=== PATIENT | male | born 1950 | race Caucasian/White ===

== ENCOUNTER 2018-01-10 13:44 | Outpatient (CLI) | payer MEDICARE ==
[2018-01-10 16:15] LABS: #Eosinphils 0.1 thou/uL (0.0-0.7); #Monocytes 0.7 thou/uL (0.11-0.59); %Basophils 0.6 % (0.0-1.0); %Eosinophils 2.1 % (0.0-10.0); %Lymphocytes 28.9 % (21.0-51.0); %Monocytes 10.3 % (0.0-10.0); %Neutrophils 58.2 % (42.0-75.0); Hemoglobin 17.8 g/dL (14.0-18.0); Mean Corpuscular Hemoglobin 34.1 pg (27.0-31.0); Mean Platelet Volume 7.5 fL (7.4-10.4); Platelet Count 158 thou/uL (130-400); RBC Distribution Width 11.8 % (11.5-14.5); Red Blood Cell (RBC) Count 5.22 mill/uL (4.70-6.10); White Blood Cell (WBC) Count 6.8 thou/uL (4.8-10.8)
[2018-01-10 16:48] LABS: Anion Gap 10 mmol/L (10-20); BUN (Urea Nitrogen) 16 mg/dL (8.4-25.7); Calc. Creatinine Clearance 0 mL/min (70-130); Calcium 9.7 mg/dL (7.8-10.44); Carbon Dioxide 30 mmol/L (23-31); Chloride 102 mmol/L (98-107); Estimated GFR-MDRD 70; Glucose 115 mg/dL (80-115); Potassium 4.3 mmol/L (3.5-5.1); Sodium 138 mmol/L (136-145)
== END 2018-01-10 13:45 | disposition home or self-care (01) ==
LOC: LABBT 13:44
PROVIDERS: ATTEND Surgery
DX: Z01.812 Encounter for preprocedural laboratory examination (principal); K40.90 Unilateral inguinal hernia, without obstruction or gangrene, not specified as recurrent
CPT/HCPCS: 80048; 85025

== ENCOUNTER 2018-01-12 09:54 | Day surgery (SDC) | payer MEDICARE ==
[2018-01-10 13:46] VITALS: BMI 29.2
[2018-01-12] MEDS ORDERED: Fentanyl 100 MCG/2 ML VIAL ONE ×3 (10:17→14:06)
[2018-01-12] MEDS ORDERED: Lidocaine 1% w/Epinephrine 1:200K 30 ML VIAL ONE (11:17)
[2018-01-12] MEDS ORDERED: Bupivacaine 0.25% HCL 30 ML VIAL ONE (11:17)
[2018-01-12] MEDS ORDERED: CEFAZOLIN/Water 2 GM/20 ML SYRINGE ONE ×2 (11:27→11:50)
[2018-01-12] MEDS ORDERED: Midazolam HCl 2 mg/2 ml Vial ONE (11:31)
[2018-01-12] MEDS ORDERED: Ondansetron HCl/PF 4 MG/2 ML Vial ONE (14:35)
[2018-01-12] MEDS ORDERED: Propofol 200 MG/20 ML VIAL ONE (14:35)
[2018-01-12] MEDS ORDERED: Glycopyrrolate 0.2 MG/ML 5 ML SYRINGE ONE (14:35)
[2018-01-12] MEDS ORDERED: Dexamethasone 20 MG/5 ML VIAL ONE (14:35)
[2018-01-12] MEDS ORDERED: Lidocaine 1% PF 5 ML VIAL ONE (14:35)
[2018-01-12] MEDS ORDERED: HYDROcodone/Acetaminophen 5/325 mg Tablet ONE (15:35)
--- NOTE | 2018-01-15 12:50 | OP ---
DATE OF PROCEDURE: 01/12/2018 PREOPERATIVE DIAGNOSIS: Right inguinal hernia. POSTOPERATIVE DIAGNOSIS: Right inguinal hernia. PROCEDURE: Laparoscopic da Kina right inguinal hernia repair with mesh Covidien ProGrip. SURGEON: Christophe Gallagher M.D. ANESTHESIA: General. ESTIMATED BLOOD LOSS: Minimal. COMPLICATIONS: None. FINDINGS: Right inguinal hernia. TECHNIQUE: The patient was taken to the operating room and placed supine on the table. After genera l anesthetic was obtained a Nguyen was placed. The abdomen and groins are shaved, prepped and draped in a sterile fashion. Curved incision made above the umbilicus. Cautery was used to dissect down to and score the fascia. Abdominal cavity entered bluntly using a Kaylyn clamp. A 12-mm Ethicon trocar was placed and high-flow pneumoperitoneum was obtained. Right and left abdominal 8 mm robot assist ports were placed. All ports were docked to the robot. The patient had been placed in Trendelenburg position. The surgeon goes to the console. The peritoneum in the right groin is taken down. The p reperitoneal space was fully dissected in the right groin. The pubic tubercle, iliopectineal line, a nterior superior iliac crest are fully dissected. There is an indirect hernia sac that was dissected out of the indirect defect high up onto the peritoneum. There was no direct defect. The right ProG rip mesh was brought in to the right-sided port and the medial labeled aspect is placed over pubic tu bercle. The mesh was unfolded to completely cover the direct, indirect and femoral areas. The perit oneum is reapproximated using 3-0 Stratafix suture. All port sites are infiltrated using local anest hetic. All ports are removed under camera visualization without bleeding, pneumoperitoneum was let d own. PDS was used to close the fascial defect above the umbilicus. All incisions are irrigated and closed using 4-0 Monocryl and Dermabond. The patient was en route to recovery in stable condition. All instrument counts, needle counts, lap counts are correct.
== END 2018-01-12 16:35 | disposition home or self-care (01) ==
LOC: SDC 09:54
PROVIDERS: ATTEND Surgery
PROC: 0YU54JZ Supplement Right Inguinal Region with Synthetic Substitute, Percutaneous Endoscopic Approach (ICD-10-PCS; principal; 2018-01-12)
DX: K40.90 Unilateral inguinal hernia, without obstruction or gangrene, not specified as recurrent (principal); Z79.899 Other long term (current) drug therapy; Z88.0 Allergy status to penicillin
CPT/HCPCS: 96374; J1100; J2001; J2250; J2405; J2704; J3010; S0020